=== PATIENT | female | born 1950 | race Caucasian/White ===

== ENCOUNTER → 2020-11-23 | Outpatient (CLI) | payer MEDICARE ==
[2020-11-23 13:15] LABS: Basophils # (A) 0.1 k/uL (0-0.2); Basophils % (A) 1 %; Eosinophils # (A) 0.2 k/uL (0-0.7); Eosinophils % (A) 2 %; HCT 47.8 % (34.0-46.0); HGB 15.3 gm/dL (11.4-16.0); Lymphocytes # (A) 2.4 k/uL (1.0-4.8); Lymphocytes % (A) 28 %; MCV 96.9 fL (80.0-100.0); Mean Platelet Volume 7.5; Monocytes # (A) 0.4 k/uL (0-1.0); Monocytes % (A) 4 %; Neutrophils # (A) 5.4 k/uL (1.3-7.7); Neutrophils % (A) 63 %; Platelet Count 301 k/uL (150-450); RBC 4.93 m/uL (3.80-5.40); RDW 11.9 % (11.5-15.5); WBC 8.6 k/uL (3.8-10.6)
== END | disposition home or self-care (01) ==
LOC: LABPAT 12:10
PROVIDERS: ATTEND Obstetrics & Gynecology
DX: Z01.818 Encounter for other preprocedural examination (principal); N83.201 Unspecified ovarian cyst, right side; I10 Essential (primary) hypertension; R00.1 Bradycardia, unspecified
CPT/HCPCS: 36415; 85025; 93005

== ENCOUNTER 2020-12-06 08:41 | Day surgery (SDC) | payer MEDICARE ==
[2020-12-01 15:25] VITALS: BMI 23.6
[2020-12-06] MEDS ORDERED: HYDROmorphone 0.5 MG/0.5 ML SYRINGE IVP PRN (09:25)
[2020-12-06] MEDS ORDERED: ONDANSETRON 4 MG/2 ML VIAL IVP ONE (09:25)
[2020-12-06] MEDS ORDERED: LACTATED RINGERS 1,000 ML IV SCH (09:25)
[2020-12-06] MEDS ORDERED: DEXAMETHASONE SOD PHOSPHATE 4 MG/ML 1 ML VIAL IV ONE (09:25)
[2020-12-06] MEDS ORDERED: MIDAZOLAM 2 MG/2 ML VIAL IV PRN (09:25)
[2020-12-06] MEDS ORDERED: LIDOCAINE 1% (10MG/ML) FOR IV START INTRADERMA ONE (09:44)
[2020-12-06] MEDS ORDERED: KETOROLAC 15 MG/ML 1 ML VIAL ONE (10:48)
[2020-12-06] MEDS ORDERED: MIDAZOLAM 2 MG/2 ML VIAL ONE (10:48)
[2020-12-06] MEDS ORDERED: GLYCOPYRROLATE 0.2 MG/ML 2 ML VIAL ONE (10:48)
[2020-12-06] MEDS ORDERED: fentaNYL (PF) 50 MCG/ML 2 ML AMP ONE (10:48)
[2020-12-06] MEDS ORDERED: SUCCINYLCHOLINE CHLORIDE 100 MG/5 ML SYR IV ONE (10:48)
[2020-12-06] MEDS ORDERED: ROCURONIUM 10 MG/ML (5 ML VIAL) IV ONE (10:48)
[2020-12-06] MEDS ORDERED: NEOSTIGMINE 1 MG/ML 10 ML VIAL ONE (10:48)
[2020-12-06] MEDS ORDERED: PROPOFOL 10 MG/ML 20 ML VIAL IV ONE (10:48)
[2020-12-06] MEDS ORDERED: HYDROmorphone (PF) 1 MG/ML ONE (10:48)
[2020-12-06] MEDS ORDERED: LIDOCAINE 1% INJ 10MG/ML (20 ML MDV) ONE (10:48)
[2020-12-06] MEDS ORDERED: PHENYLEPHRINE-0.9% NACL SYG 1,000 MCG/10 ML SYRINGE ONE (10:48)
[2020-12-06] MEDS ORDERED: BUPIVACAINE (PF) 0.25% 30 ML VIAL SQ ONE ×2 (11:18→11:56)
--- NOTE | 2020-12-06 12:06 | P.OP ---
Date of Procedure: 12/06/20 Preoperative Diagnosis: Complex right ovarian cyst, family history of ovarian cancer Postoperative Diagnosis: Same, right hydrosalpinx noted. No evidence of ovarian pathology, ovaries appear atrophic bilaterally Procedure(s) Performed: Laparoscopic bilateral salpingo-oophorectomy Anesthesia: VALERIEA Surgeon: Eulalia Chiu Drawer Maker #1: Ed Connor Estimated Blood Loss (ml): 10 IV fluids (ml): 600 Urine output (ml): 100 Pathology: other (Bilateral tubes and ovaries) Condition: stable Disposition: PACU Description of Procedure: Patient is brought to the [facility] and suite where a general anesthetic is admi nistered without difficulty. She's placed in the dorsal lithotomy position. The cervix, vagina, abdomen are all prepped and draped in usual sterile fashion. The appropriate timeout is performed to assure proper patient and procedural identification. Antibiotics are not deemed necessary. Speculum was placed into the vagina and an acorn cannula is placed in the endocervical canal and attached to an Allis. Speculum is removed. Attention is now drawn to the abdominal cavity. Under direct visualization a 5 mm scope was placed into the peritoneum. The abdomen is insufflated with CO2 gas. A second incision is made in the right lower quadrant under direct visualization a 5 mm port is placed. In the left lower quadrant under direct visualization a 10 mm port is placed. Uterus is placed and anteverted lateral traction. Patient is placed in Trendelenburg position. The right tube is noted to contain a hydrosalpinx. The EndoShears are used to gently remove adhesions from the bowel. The LigaSure is then used across supporting and vascular pedicles, and the right tube and ovary are removed and placed in the cul-de-sac. Care is taken to keep the specimen well from the pelvic side wall to avoid any vessel or ureteral injury. The same procedure is carried out contralaterally, the LigaSure is used and the left tube and ovary are entirely removed. Hemostasis is excellent. At this point the Endobag is placed in the 10 mm port. Bilateral tubes and ovaries are placed in the bag, and it is brought through the incision intact and sent to pathology. Suction with banquet lead is used across the pedicles which are all clean and dry. Again hemostasis is excellent. CO2 gas was allowed to diffuse, fascial defects are clean and dry. 4-0 undyed Monocryl is used in subcuticular manner to close the skin. Steri-Strips are placed on the wounds after 8 mL of quarter percent Marcaine without epinephrine is used to inject the 3 small incisions. Instrumentation is removed from the vagina, cervix is clean and dry. Patient is brought back to the recovery room in very good condition with stable vital signs including blood pressure 137/27, pulse 63, 98% O2 saturation. She is given Toradol prior to leaving the room. She will follow-up with me in the office in 2 weeks. Total estimated blood loss 10 mL's.
[2020-12-06 12:19] VITALS: TEMP 97
[2020-12-06 13:48] VITALS: BP 132/75; PULSE 54; RESP 18
[2020-12-06] MEDS ORDERED: ONDANSETRON 4 MG/2 ML VIAL ONE (14:08)
== END 2020-12-06 14:30 | disposition home or self-care (01) ==
LOC: OR 08:41
PROVIDERS: ATTEND Obstetrics & Gynecology
DX: N70.11 Chronic salpingitis (principal); N83.312 Acquired atrophy of left ovary; N83.311 Acquired atrophy of right ovary; I10 Essential (primary) hypertension; E78.5 Hyperlipidemia, unspecified; Z79.899 Other long term (current) drug therapy; Z88.1 Allergy status to other antibiotic agents; Z88.0 Allergy status to penicillin; Z88.2 Allergy status to sulfonamides
CPT/HCPCS: 88305; 84132; 58661; J2250; J1100; J2710; J2405; J2001; J3010; J1170; J1885; J2370; J0330; J2704